=== PATIENT | female | born 1975 | race Caucasian/White ===

== ENCOUNTER → 2023-08-19 10:21 | Outpatient (REF) | payer OTHER, SELFPAY | LOC: RAD 10:21 | PROVIDERS: ATTENDING PHYSICIAN Family Medicine | DX: Z95.828 Presence of other vascular implants and grafts (principal) | CPT/HCPCS: 71046 ==

== ENCOUNTER → 2024-04-11 12:40 | Outpatient (REF) | payer OTHER, SELFPAY ==
[2024-04-11 12:55] VITALS: BP 137/94; BP_SYST 104
[2024-04-11 13:42] VITALS: BP 129/98; BP_SYST 69
[2024-04-11 13:55] VITALS: BP 129/98
== END ==
LOC: RADI 12:40
PROVIDERS: ATTENDING PHYSICIAN Internal Medicine Infectious Disease; FAMILY PHYSICIAN Internal Medicine
DX: B99.9 Unspecified infectious disease (principal)
CPT/HCPCS: 36573; C1751

== ENCOUNTER 2024-05-20 11:04 | Emergency (ER) | payer OTHER, SELFPAY ==
[2024-05-20 11:11] VITALS: BP 129/85
--- NOTE | 2024-05-20 12:11 | ED.GENMED ---
History of Present Illness
General
Chief Complaint: Vascular Access Problem
Time Seen by Provider: 05/20/24 11:47
History of Present Illness
History of Present Illness:
48-year-old female presents the emergency evaluation of left PICC line migration. She has had a PICC line for the past month IV ceftriaxone due to osteomyelitis. She noticed 1 cm of external migration last night but was still able to return blood
and infuse through the catheter. She arrives today requesting a chest x-ray for placement confirmation
Past History
Past History
ED Past Medical History: Other
ED Past Surgical History: Other (sinus surgery)
Social History
Tobacco: Non-smoker
Alcohol: None
Drug: None
Employment: Employed
Review of Systems
Review of Systems
Allergies reviewed?: Yes
All Other Systems: ROS reviewed and negative except as documented in HPI and ROS
Phy Exam
Physical Exam
Physical Exam:
GEN: Well appearing, NAD, WDWN
HEENT: Oral mucosa moist, no scleral icterus
Cardiac: Regular rate
Lung: No respiratory distress, no tachypnea
MSK: No gross deformity or injuries. PICC line in the left upper extremity, site is clean and dry with no erythema
Skin: Good color, no pallor or jaundice, no rashes
Neuro: AO x3, moves all extremities freely
Psych: Calm, cooperative
Course
Orders/Labs/Results
Orders:
Orders
05/20/24 11:17
Chest [CR Chest - 2 Views ] Urgent
Comment:
Reason For Exam: confirm picc placement
Vital Signs
Initial and Last Documented VS:
Initial Vital Signs
Temp Pulse Resp BP Pulse Ox
98.7 F 83 16 129/85 99
05/20/24 11:11 05/20/24 11:11 05/20/24 11:11 05/20/24 11:11 05/20/24 11:11
Last Documented Vital Signs
Temp Pulse Resp BP Pulse Ox
98.7 F 83 16 129/85 99
05/20/24 11:11 05/20/24 11:11 05/20/24 11:11 05/20/24 11:11 05/20/24 11:11
MDM/Problems Addressed
MDM/Problems Addressed:
PICC line in satisfactory positioning on chest x-ray
*Critical Care Note
Total Time (30-74mins, 75-104mins- exclusive of procedures): Not Applicable
ED Attending Note
-
Portions of this chart may have been created with voice recognition software.� Occasional wrong word or��sound alike� substitutions may have occurred due to the inherent limitations of voice recognition software.
Discharge Plan
Departure
Patient Disposition: Home (Routine Discharge)
Date of Disposition: 05/20/24
Time of Disposition: 12:13
Patient with high blood pressure during this ER visit?: No
Discharge Problem:
Status post PICC central line placement
Prescriptions:
No Action
ascorbic acid (vitamin C) [Vitamin C] 1,000 mg Tablet
1,000 mg PO DAILY
Probiotic 3 billion cell Capsule
1 cell PO DAILY
kzbrgodd-oxyj-hgydl-oreg-capry 100 mg-150 mg- 50 mg-150 mg Capsule
1 cap PO DAILY
Referrals:
Jacques Boston MD [Family Provider] -
Activity Restrictions/Additional Instructions:
Tip of the PICC line is seen in the SVC on chest x ray
Interventions
Interventions:
*Risk Screen - Suicide Last Done: 05/20/24 12:26
*General Assessment Last Done: 05/20/24 12:26
*Neglect/Abuse Screening Last Done: 05/20/24 12:26
ED- Fall Risk Assessment Last Done: 05/20/24 12:26
*ED COVID-19 Vaccine History Last Done: 05/20/24 12:26
*Nursing Disposition Last Done: 05/20/24 12:26
Discharge Date and Time
Discharge Date/Time: 05/20/24 12:27
Print Language: DIVEHI
== END 2024-05-20 12:27 | disposition home or self-care (01) ==
LOC: EMR 11:04
PROVIDERS: EMERGENCY PHYSICIAN Emergency Medicine; FAMILY PHYSICIAN Internal Medicine
DX: Z45.2 Encounter for adjustment and management of vascular access device (principal); M86.9 Osteomyelitis, unspecified; Z88.1 Allergy status to other antibiotic agents; Z91.048 Other nonmedicinal substance allergy status
CPT/HCPCS: 99283; 71046

== ENCOUNTER → 2024-06-03 10:22 | Outpatient (REF) | payer OTHER, SELFPAY | LOC: RAD 10:22 | PROVIDERS: ATTENDING PHYSICIAN Internal Medicine Infectious Disease; FAMILY PHYSICIAN Internal Medicine | DX: Z45.2 Encounter for adjustment and management of vascular access device (principal); M27.2 Inflammatory conditions of jaws | CPT/HCPCS: 71046 ==

== ENCOUNTER → 2024-06-08 12:42 | Outpatient (REF) | payer OTHER, SELFPAY ==
[2024-06-08 13:15] VITALS: BP 129/79; BP_SYST 83
== END ==
LOC: RADI 12:42
PROVIDERS: ATTENDING PHYSICIAN Internal Medicine Infectious Disease; FAMILY PHYSICIAN Internal Medicine
DX: T82.524A Displacement of infusion catheter, initial encounter (principal); Y82.8 Other medical devices associated with adverse incidents
CPT/HCPCS: 36584; C1751; C1769

== ENCOUNTER → 2025-03-12 13:19 | Outpatient (REF) | payer OTHER, SELFPAY | LOC: RCS 13:19 | PROVIDERS: ATTENDING PHYSICIAN Nurse Practitioner; FAMILY PHYSICIAN Family Medicine | DX: I49.3 Ventricular premature depolarization (principal) | CPT/HCPCS: 93306 ==

== ENCOUNTER 2025-04-15 19:18 | Emergency (ER) | payer OTHER, SELFPAY ==
[2025-04-15 19:20] VITALS: BP 157/101
[2025-04-15 19:40] LABS: Urine Character Clear (Clear)
--- NOTE | 2025-04-15 20:24 | ED.GENMED ---
History of Present Illness
General
Chief Complaint: Abdominal Pain
Source: patient
Exam Limitations: none
Time Seen by Provider: 04/15/25 19:36
Nursing documentation reviewed up to this point in time: agreed with
History of Present Illness
History of Present Illness:
Note:
CHIEF COMPLAINT(S)
Right-sided upper quadrant abdominal pain and persistent cough for one week.
HISTORY OF PRESENT ILLNESS
The patient is a 49-year-old female with a complex medical history of chronic mandibular osteomyelitis, migraines, chronic sinusitis presenting with right upper quadrant abdominal pain and a persistent cough for the past week. She reports the pain
is exacerbated by palpation and coughing, describing it as tender and painful upon touch and deep breaths. The cough is productive with some discharge and is accompanied by post-nasal drainage.
The patient recently underwent a computed tomography (CT) scan revealing moderate mucosal thickening and post-nasal thickening, with cultures by PCP positive for Pseudomonas aeruginosa. She has concerns about her current antibiotic regimen, as it
does not cover Pseudomonas infections. The medications mentioned include daptomycin and Unasyn, which the patient suspects may be contributing to her symptoms. She is concerned about effect of daptomycin on her liver. Two years ago, the patient
underwent surgery related to dental complications. She developed jaw osteomyelitis post-surgery, with persistent facial pain and swelling, described as a firm and painful lump. A recent attempt to resolve the osteomyelitis involved daptomycin
administered through a peripherally inserted central catheter (PICC) line. Her surgery site failed to heal properly, resulting in persistent infections, including Staphylococcus and fungal infections treated with fluconazole, causing concerns about
liver health given earlier abnormal liver enzyme levels.
The patient expresses significant distress about her current health status, mentioning persistent facial defects and recurrent infections, complicated by mismanagement post-surgery. Additionally, she is scheduled to see a her infectious disease
specialist for the Pseudomonas infection management. She denies shortness of breath. She denies pain in the lower chest. She denies dizziness or lightheadedness. She denies fevers or chills. She denies coughing up of blood or mucus.
PAST MEDICAL AND SURGICAL HISTORY
The patient had a history of suboptimal surgical interventions for dental issues, complicated by residual tooth segments leading to osteomyelitis. She had surgery two years ago to address these concerns but resulted in recurrent infections and
surgical mismanagement.
CHRONIC MEDICAL CONDITIONS SIGNIFICANTLY AFFECTING CARE
- Recurrent jaw osteomyelitis and persistent facial infections
- History of Staphylococcus and fungal infections
- Dental complications leading to jaw osteomyelitis
SOCIAL HISTORY
No history of smoking, alcohol, or recreational drug use was reported.
PHYSICAL EXAM
General: Patient is well appearing and in no acute distress; non-toxic
Skin: Warm and dry, no rashes or lesions
Head: Normocephalic, atraumatic
Eyes: Sclera non-icteric. EOMs intact.
Cardiac: Regular rate and rhythm, no murmurs
Peripheral Vascular: No lower extremity swelling or edema
Pulm: Normal respiratory effort, no wheezes, rales, rhonchi
Abdomen: Abdomen soft, normal bowel sounds noted, minimal tenderness noted in the right upper quadrant
Neuro: CN II-XII intact, no focal neurologic deficits.
Psychiatric: Appropriate mood and affect.
CHART REVIEW
Patient had recent trip to urgent care today right before ER visit and she had a chest x-ray which was normal.
She gave me her report from CT maxillofacial bones which was done on the which revealed postop changes seen in the bone with moderate mucosal thickening in the left maxillary sinuses with no evidence of fluid collection or abscess
PROBLEM LIST
Acute Problems:
- Persistent cough
- Right-sided upper quadrant abdominal pain
- Positive nasal for Pseudomonas aeruginosa
Chronic Problems:
- Jaw osteomyelitis
- Recurrent facial infections
PLAN
- Perform liver function tests to assess enzyme levels due to concerns about daptomycin use and potential side effects.
- Conduct an abdominal ultrasound to evaluate the liver and related structures, given prior gallbladder removal.
- Close outpatient follow-up with infectious disease
- Monitor and manage pain with suitable analgesics.
- Reassessment with an oral surgeon for possible surgical intervention and management of ongoing facial and bone defects as an outpatient
- CBC, CMP, D-dimer
DIFFERENTIAL DIAGNOSIS
The Differential Diagnosis includes, in no particular order and is not limited to:
1. Pseudomonas aeruginosa infection
2. Daptomycin-induced hepatitis
3. Chronic sinusitis with post-nasal drip
4. Unasyn side effects
5. Recurrent Staphylococcus infection
6. Liver dysfunction secondary to polypharmacy
7. Secondary bacterial infection
8. Fluconazole side effects
9. Osteomyelitis exacerbation
10. Stress-related gastrointestinal complications
UPDATE
Update, patient states that she is uncomfortable requesting pain medication
Patient given Toradol and on reevaluation, she is feeling improved. Patient is requesting ESR and CRP because she would like to compare it to the previous levels she had done and trended, she is also concerned about a cardiac etiology to her
symptoms and is requesting ECG and troponin both of which were unremarkable and normal
MDM/DISPOSITION
The patient is a 49-year-old female with a complex medical history of chronic mandibular osteomyelitis, migraines, chronic sinusitis presenting with right upper quadrant abdominal pain and a persistent cough for the past week. She reports the pain
is exacerbated by palpation and coughing, describing it as tender and painful upon touch and deep breaths. The coughing started first and the pain started later. Patient concerned about her liver because she is on daptomycin. On review of blood
work, her liver functions are normal and her abdominal ultrasound does not show any acute abnormalities of the liver. She had elevated D-dimer and went for CT scan of the chest which showed no PE but did show a right sided groundglass opacity which
may be concerning for atypical infection. I discussed findings with patient.
Patient did have a positive sputum culture for Pseudomonas a week ago. Ground glass opacities could represent a developing pneumonia. Considering patient's complex history regarding continuous IV antibiotics for chronic osteomyelitis as well as
multiple antibiotic allergies, will defer antibiotic treatment for possible lung infection to her infectious disease doctor who she is seeing later this morning. Patient is okay with this plan.
Patient has no white blood cell count, no fever, no indication for admission at this time. Stable for outpatient follow-up.
Past History
Past History
ED Past Medical History: Other
ED Past Surgical History: Other (sinus surgery)
Social History
Tobacco: Non-smoker
Alcohol: None
Drug: None
Employment: Employed
Phy Exam
Physical Exam
Physical Exam:
see hpi
Course
Orders/Labs/Results
Orders:
Orders
04/15/25 19:32
Urinalysis Reflex To Culture Urgent
Date Specimen was Collected: 04/15/25
Time Specimen was Collected: 19:27
04/15/25 20:23
Electrocardiogram (*1) Urgent
Reason for Study: Other
Other Reason for Exam: chest wall discomfort
EKG- Treatment ONCE
04/15/25 20:33
C-Reactive Protein Urgent
Comment: ADD ON
Complete Blood Count/With Diff Urgent
Comprehensive Metabolic Panel Urgent
Creatine Phosphokinase Urgent
Comment: ADD ON
Erythrocyte Sed Rate Urgent
Comment: ADD ON
04/15/25 20:43
COVID-19 Antigen Urgent
Source: Nasal Swab
Influenza A+B Rapid Molecular Urgent
DEWEY Source: Nasal Swab
Specimen Description:
04/15/25 21:32
US Abdomen Complete/Upper Urgent
Comment:
Reason For Exam: upper abdominal pain
04/15/25 22:01
Add On- LAB Urgent
Tests Added?: cpk
04/15/25 22:23
D-Dimer Urgent
04/15/25 22:52
Add On- LAB Urgent
Tests Added?: esr, crp
04/15/25 22:55
Troponin I Urgent
04/15/25 23:02
Ketorolac [Toradol] 15 mg IV NOW STA
04/16/25 00:00
CT Chest PE Study Urgent
Reason For Exam: chest pain, elevated d dimer
Abnormal Lab Results
04/15/25 04/15/25
20:33 22:23
MCH 31.4 H pg
(27.0-31.0)
ESR 33 H mm/hour
(0-20)
D-Dimer 1.01 H ug/mlFEU
(0.00-0.50)
Glucose 111 H mg/dl
(70-99)
04/15/25 20:33
04/15/25 20:33
Vital Signs
Initial and Last Documented VS:
Initial Vital Signs
Temp Pulse Resp BP Pulse Ox
98 F 100 20 157/101 100
04/15/25 19:20 04/15/25 19:20 04/15/25 19:20 04/15/25 19:20 04/15/25 19:20
Last Documented Vital Signs
Temp Pulse Resp BP Pulse Ox
98 F 77 20 133/88 97
04/15/25 19:20 04/15/25 23:15 04/15/25 23:15 04/15/25 23:15 04/15/25 23:15
*Pulse Oximetry
SaO2: 100
Oxygen Mode of Delivery: Room air
Patient hypoxic: no
*Critical Care Note
Total Time (30-74mins, 75-104mins- exclusive of procedures): Not Applicable
ED Attending Note
-
Portions of this chart may have been created with voice recognition software.� Occasional wrong word or��sound alike� substitutions may have occurred due to the inherent limitations of voice recognition software.
Discharge Plan
Departure
Patient Disposition: Home (Routine Discharge)
Date of Disposition: 04/16/25
Time of Disposition: 01:33
Patient with high blood pressure during this ER visit?: Yes
Condition: Good
Discharge Problem:
Right upper quadrant abdominal pain, Cough
Instructions: Cough in adults, Abdominal pain in adults - Discharge instructions, BLOOD PRESSURE
Prescriptions:
No Action
Probiotic 3 billion cell Capsule
1 cell PO DAILY
doxycycline hyclate 100 mg Capsule
100 mg PO DAILY
ceftriaxone 1 gram Piggyback
1 g IV USEASDIRECTD
Referrals:
Jacques Boston MD [Family Provider, Internal Medicine]
Activity Restrictions/Additional Instructions:
As discussed, your CAT scan shows a nonspecific ground glass opacity in the right lower lobe which may be due to an atypical infectious process. Regarding your chronic osteomyelitis of the jaw with concurrent sinusitis, and the antibiotics you are
currently taking, please consult your infectious disease doctor with your scheduled appointment later today. You may require additional antibiotic therapy.
PLEASE RETURN EMERGENCY DEPARTMENT SHOULD SHE DEVELOP INTRACTABLE NAUSEA OR VOMITING, ACUTE WORSENING OF HER SYMPTOMS, TROUBLE BREATHING, CHEST PAIN, DIZZINESS, LIGHTHEADEDNESS, LOSS OF CONSCIOUSNESS, FEVERS, OR ANY OTHER SIGNS OR SYMPTOMS WORRISOME
TO YOU.
Interventions
Interventions:
*Risk Screen - Suicide Last Done: 04/15/25 19:20
*General Assessment Last Done: 04/15/25 19:20
*Neglect/Abuse Screening Last Done: 04/15/25 19:20
*ED- Fall Risk Assessment Last Done: 04/15/25 19:20
*Nursing Disposition Last Done: 04/16/25 01:45
PH-Pywnqv-Gxxgpabltu Assessment Last Done: 04/15/25 21:00
Discharge Date and Time
Discharge Date/Time: 04/16/25 01:45
Print Language: MAURITANIAN
[2025-04-15 20:45] LABS: Hematocrit 38.9 % (37.0-47.0); Hemoglobin 13.4 g/dL (12.0-16.0); Mean Corp Hgb Conc. 34.4 g/dL (33.0-37.0); Mean Corpuscular Volume 91.1 fL (81.0-99.0); Nucleated Red Blood Cells % 0 %; Platelet Count 322 10^3/uL (130-400); Red Cell Dist. Width 12.9 % (11.5-14.5)
[2025-04-15 21:04] LABS: COVID-19 Antigen Negative (Negative)
[2025-04-15 21:09] LABS: ALT (SGPT) 30 U/L (0-35); AST (SGOT) 23 U/L (14-36); Albumin 4.1 g/dl (3.5-5.0); Alkaline Phosphatase 87 U/L (38-126); Blood Urea Nitrogen 15 mg/dl (7-17); Calcium 8.9 mg/dl (8.4-10.2); Carbon Dioxide 24 mmol/L (22-30); Chloride 106 mmol/L (98-107); Glucose 111 mg/dl (70-99); Potassium 4.4 mmol/L (3.5-5.1); Sodium 136 mmol/L (135-145); Total Protein 6.8 g/dl (6.3-8.2); eGFR > 60.00
[2025-04-15 22:55] LABS: D-Dimer 1.01 ug/mlFEU (0.00-0.50)
[2025-04-15] MEDS: TORADOL 15 MG IV (23:05)
[2025-04-15 23:15] VITALS: BP 133/88
[2025-04-15 23:29] LABS: Troponin I < 0.012 ng/ml
[2025-04-15 23:31] LABS: C-Reactive Protein 9.40 mg/L (0.0-10.00)
== END 2025-04-16 01:45 | disposition home or self-care (01) ==
LOC: EMR 19:18
PROVIDERS: Physician Assistant; EMERGENCY PHYSICIAN Emergency Medicine; FAMILY PHYSICIAN Internal Medicine; REFERRING PHYSICIAN Family Medicine
DX: R10.11 Right upper quadrant pain (principal); R05.9 Cough, unspecified; Z87.39 Personal history of other diseases of the musculoskeletal system and connective tissue; Z11.52 Encounter for screening for COVID-19
CPT/HCPCS: 99284; 96374; 71275; 76700; 80053; 81003; 82550; 84484; 85025; 85379; 85652; 86140; 87502; 87811; 93005; Q9967

== ENCOUNTER 2025-04-21 14:21 | Emergency (ER) | payer OTHER, SELFPAY ==
[2025-04-21 14:24] VITALS: BP 151/91
--- NOTE | 2025-04-21 15:36 | ED.GENMED ---
History of Present Illness
<Angelica Johnson PA-C - Last Filed: 04/23/25 03:17>
General
Chief Complaint: Abdominal Pain
Source: patient
Exam Limitations: none
Time Seen by Provider: 04/21/25 14:43
Nursing documentation reviewed up to this point in time: agreed with
History of Present Illness
History of Present Illness:
Patient is a 49-year-old female currently on IV antibiotics via PICC for osteomyelitis of the jaw who presents to the emergency department with concerns of persistent right upper quadrant pain. Patient seen in the ED 6 days ago for similar
complaints without any acute findings. Patient states pain in her right upper abdomen has remained constant and seems to radiate across the top of her abdomen. She also reports a vague discomfort in her left chest. She is concerned that this may
be related to her pancreas that she was recently on daptomycin via her PICC line.
Patient states this morning she felt nauseous and had an episode of vomiting. She denies any fever or chills. She denies any shortness of breath/difficulty breathing.
Patient currently undergoing treatment for osteomyelitis after jaw surgery in mid March. She is currently receiving IV vancomycin and IV cefepime via PICC line.
She reports past history of cholecystectomy
Past History
<Angelica Johnson PA-C - Last Filed: 04/23/25 03:17>
Past History
ED Past Medical History: Other
ED Past Surgical History: Other (sinus surgery)
Social History
Tobacco: Non-smoker
Alcohol: None
Drug: None
Employment: Employed
Review of Systems
<Angelica Johnson PA-C - Last Filed: 04/23/25 03:17>
Review of Systems
Allergies reviewed?: Yes
All Other Systems: ROS reviewed and negative except as documented in HPI and ROS
Phy Exam
<Angelica Johnson PA-C - Last Filed: 04/23/25 03:17>
Physical Exam
Physical Exam:
Vitals: Hypertensive, otherwise vital signs stable. Afebrile
General: Patient is well appearing, no acute distress. Nontoxic appearing
Skin: Warm and dry, no rashes or lesions
Head: Normocephalic, atraumatic
Eyes: Sclera nonicteric.
Throat: Protecting airway
Neck: Normal ROM, no cervical spine tenderness, no meningismus
Cardiac: Regular rate and rhythm, no murmurs.
Pulm: Normal respiratory effort, no wheezes, rales, rhonchi heard on exam
Abdomen: Abdomen soft. Mild reproducible tenderness in right upper quadrant/right lower chest. No rebound tenderness or guarding. No epigastric tenderness. No ecchymoses or rash
Extremities: PICC in left upper extremity. No evidence of cyanosis or edema
Neuro: AAOx3. Grossly intact.
Psychiatric: Normal affect.
Course
<Angelica Johnson PA-C - Last Filed: 04/23/25 03:17>
Orders/Labs/Results
Orders:
Orders
04/21/25 15:38
Electrocardiogram (*1) Urgent
Reason for Study: Chest Pain
EKG- Treatment ONCE
Ketorolac [Toradol] 15 mg IV NOW STA
04/21/25 15:46
Complete Blood Count/With Diff Urgent
Comprehensive Metabolic Panel Urgent
Lipase Urgent
04/21/25 15:59
Heparin Pf [Heparin Lock Flush] 1,000 unit .ROUTE .STK-MED ONE
04/21/25 16:00
Heparin Pf [Heparin Lock Flush] 500 unit IV PER PROTOCOL
04/21/25 16:48
Albuterol [ProAIR HFA INHALER] 2 puff INH R NOW STA
04/21/25 16:51
Albuterol [ProAIR HFA INHALER] 2 puff INH R NOW STA
Abnormal Lab Results
04/21/25
15:46
RBC 4.18 L 10^6/uL
(4.20-5.40)
MCH 31.6 H pg
(27.0-31.0)
Lymphocytes % 15.7 L %
(20.5-51.1)
Eosinophils % 8.5 H %
(0-6)
Chloride 108 H mmol/L
(98-107)
04/21/25 15:46
04/21/25 15:46
Vital Signs
Initial and Last Documented VS:
Initial Vital Signs
Temp Pulse Resp BP Pulse Ox
98.6 F 89 16 151/91 98
04/21/25 14:24 04/21/25 14:24 04/21/25 14:24 04/21/25 14:24 04/21/25 14:24
Last Documented Vital Signs
Temp Pulse Resp BP Pulse Ox
98.6 F 82 18 133/90 97
04/21/25 14:24 04/21/25 17:00 04/21/25 17:00 04/21/25 17:00 04/21/25 17:00
Anamikalt;Sabas Guzman, DO - Last Filed: 04/21/25 16:51>
Orders/Labs/Results
Orders:
Orders
04/21/25 15:38
Electrocardiogram (*1) Urgent
Reason for Study: Chest Pain
EKG- Treatment ONCE
Ketorolac [Toradol] 15 mg IV NOW STA
04/21/25 15:46
Complete Blood Count/With Diff Urgent
Comprehensive Metabolic Panel Urgent
Lipase Urgent
04/21/25 15:59
Heparin Pf [Heparin Lock Flush] 1,000 unit .ROUTE .STK-MED ONE
04/21/25 16:00
Heparin Pf [Heparin Lock Flush] 500 unit IV PER PROTOCOL
04/21/25 16:48
Albuterol [ProAIR HFA INHALER] 2 puff INH R NOW STA
04/21/25 16:51
Albuterol [ProAIR HFA INHALER] 2 puff INH R NOW STA
Abnormal Lab Results
04/21/25
15:46
RBC 4.18 L 10^6/uL
(4.20-5.40)
MCH 31.6 H pg
(27.0-31.0)
Lymphocytes % 15.7 L %
(20.5-51.1)
Eosinophils % 8.5 H %
(0-6)
Chloride 108 H mmol/L
(98-107)
04/21/25 15:46
04/21/25 15:46
Vital Signs
Initial and Last Documented VS:
Initial Vital Signs
Temp Pulse Resp BP Pulse Ox
98.6 F 89 16 151/91 98
04/21/25 14:24 04/21/25 14:24 04/21/25 14:24 04/21/25 14:24 04/21/25 14:24
Last Documented Vital Signs
Temp Pulse Resp BP Pulse Ox
98.6 F 82 18 133/90 97
04/21/25 14:24 04/21/25 17:00 04/21/25 17:00 04/21/25 17:00 04/21/25 17:00
<Angelica Johnson PA-C - Last Filed: 04/23/25 03:17>
MDM/Problems Addressed
Differential Diagnosis Includes:
Not limited to: Muscle strain/spasm, costochondritis, pleurisy, pneumonia, pancreatitis, etc.
MDM/Problems Addressed:
49-year-old female currently undergoing IV antibiotics via PICC line for osteomyelitis of jaw with persistent right upper quadrant pain. She did have 1 episode of nausea and vomiting this morning. No fevers. No shortness of breath. Exam as
above. Patient well-appearing, in no apparent distress. Abdomen soft without any rebound tenderness or guarding. No epigastric tenderness and negative Silveira sign. Cardio/pulmonary assessment unremarkable.
Patient had very extensive workup in emergency department approximately 6 days ago for similar symptoms, including normal abdominal ultrasound and negative CTA chest. Patient concerned about her pancreas. Low suspicion for acute infectious
process. Will check labs, lipase, EKG and treat with Toradol.
Update: Labs without any clinically significant abnormalities. Lipase normal. EKG shows normal sinus rhythm without acute ischemic changes. Ultimately�do not suspect acute intra-abdominal infection. There was a possible groundglass opacity
versus atelectasis noted on CTA chest about a week ago however�patient is already receiving IV vancomycin and cefepime which should cover for a possible pneumonia. Do suspect underlying GERD. Will discharge patient home with PPI and incentive
spirometer given findings of atelectasis. Patient seen with attending physician. Return precautions discussed.
Chronic conditions affecting care:
Osteomyelitis of jaw currently receiving IV vancomycin/cefepime via PICC
Acute Exacerbation and/or Progression of Chronic Illness:
N/A
<Angelica Johnson PA-C - Last Filed: 04/23/25 03:17>
*Pulse Oximetry
SaO2: 98
Oxygen Mode of Delivery: Room air
Patient hypoxic: no
*EKG
Interpreted by ED Provider?: Yes
EKG Intrepretation Date: 04/21/25
Interpretation: normal
Comparison EKG: no changes
Heart Rate: 78
Rate: normal
Rhythm: sinus
[place]: normal axis
Interval: normal QT interval
QRS Pattern: normal QRS
Ischemia: no ischemia
*Manufacturing Laborer Interpretation
Rate: Manufacturing Laborer- N/A
*Critical Care Note
Total Time (30-74mins, 75-104mins- exclusive of procedures): Not Applicable
Data Reviewed
Review of Other/Old Records Reveals: Radiology Studies (Chest CT from 04/16/2025 which shows no evidence of PE however bilateral groundglass opacities in lower lobes; abdominal ultrasound from 04/15/2025 without acute findings)
ED Attending Note
<Angelica Johnson PA-C - Last Filed: 04/23/25 03:17>
-
Portions of this chart may have been created with voice recognition software.� Occasional wrong word or��sound alike� substitutions may have occurred due to the inherent limitations of voice recognition software.
<Sabas Guzman DO - Last Filed: 04/21/25 16:51>
ED Attending Note
Patient seen and examined by attending physician: Yes
I performed the substantive portion of visit, reviewed & personally made and approve the management plan that is documented in note by myself or RENETTA.: Yes
I performed a history and physical exam of patient and discussed management with resident, I reviewed resident's note and agree with documented findings and plan of care.: Yes
ED Attending Note:
49-year-old female presents to the ER for evaluation of right upper quadrant abdominal pain along with nausea over the past 2 weeks. Patient is on long-term antibiotics for treatment of a poorly healing dental infection. She recently was changed
to cefepime and Vanco through PICC line due to presence of Pseudomonas in her most recent culture. Patient states she has had generally a poor appetite. She cannot correlate her symptoms necessarily with p.o. intake. She reports pain with deep
breathing. She had been seen in this emergency department 5 days ago for the same symptoms and underwent CT of the chest to rule out pulmonary embolism. Patient has been not feeling any better and had read her CT reports concerning for groundglass
opacities prompting her to come back to the ER for another opinion. No fevers. Vital signs reviewed, patient is awake, alert, loquacious, appears in no acute distress, sclera anicteric, mucous membranes moist, heart regular rate and rhythm not
murmurs or ectopy, lungs are clear to auscultation without wheezes rales or rhonchi, cough is provoked with deep inspiration, GCS is 15. I discussed with patient very reassuring workup in the emergency department today-white blood count normal,
lipase negative. I reviewed CT results from last week, nonspecific findings. She is not hypoxic. She is not tachycardic. I discussed with her trial of albuterol inhaler to see if this helps alleviate her symptoms. I also discussed with patient
benefit of encouraged deep breathing in order to prevent worsening of atelectasis. She is already on very thorough antibiotic coverage if this were to reflect pneumonia. I also discussed with patient addition of antiacid medication as she has in
the past experience GERD and I wonder if this is also affecting her discomforts. Patient feels comfortable with this plan for discharge home. She has no questions at the current time.
Discharge Plan
Departure
Patient Disposition: Home (Routine Discharge)
Date of Disposition: 04/21/25
Time of Disposition: 16:52
Patient with high blood pressure during this ER visit?: Yes
Discharge Problem:
Abdominal pain, RUQ
Instructions: Acid Reflux, Adult and Adolescent ED
Prescriptions:
No Action
Probiotic 3 billion cell Capsule
1 cell PO DAILY
doxycycline hyclate 100 mg Capsule
100 mg PO DAILY
ceftriaxone 1 gram Piggyback
1 g IV USEASDIRECTD
Referrals:
Chris Soto MD [Family Provider]
Activity Restrictions/Additional Instructions:
Please use Pepcid as available [id number] daily until you are seen in follow-up with your primary care physician. Continue using antibiotics as prescribed. Please try to take at least 10 deep breaths every hour to help with discomforts. Use
albuterol inhaler as given in the emergency department 4 times daily until seen in follow up
Interventions
Interventions:
*Risk Screen - Suicide Last Done: 04/21/25 14:24
*General Assessment Last Done: 04/21/25 15:38
*Neglect/Abuse Screening Last Done: 04/21/25 14:24
*ED- Fall Risk Assessment Last Done: 04/21/25 15:38
*Nursing Disposition Last Done: 04/21/25 17:30
FJ-Kzuzam-Cytybscqly Assessment Last Done: 04/21/25 15:38
Discharge Date and Time
Discharge Date/Time: 04/21/25 17:30
Print Language: [place]
[2025-04-21] MEDS: TORADOL 15 MG IV (16:02)
[2025-04-21 16:08] LABS: Hematocrit 38.2 % (37.0-47.0); Hemoglobin 13.2 g/dL (12.0-16.0); Mean Corp Hgb Conc. 34.6 g/dL (33.0-37.0); Mean Corpuscular Volume 91.4 fL (81.0-99.0); Nucleated Red Blood Cells % 0 %; Platelet Count 295 10^3/uL (130-400); Red Cell Dist. Width 12.9 % (11.5-14.5)
[2025-04-21 16:23] LABS: ALT (SGPT) 35 U/L (0-35); AST (SGOT) 25 U/L (14-36); Albumin 4.1 g/dl (3.5-5.0); Alkaline Phosphatase 90 U/L (38-126); Blood Urea Nitrogen 8 mg/dl (7-17); Calcium 9.2 mg/dl (8.4-10.2); Carbon Dioxide 25 mmol/L (22-30); Chloride 108 mmol/L (98-107); Glucose 97 mg/dl (70-99); Lipase 129 U/L (23-300); Potassium 4.0 mmol/L (3.5-5.1); Sodium 137 mmol/L (135-145); Total Protein 6.8 g/dl (6.3-8.2); eGFR > 60.00
[2025-04-21 17:00] VITALS: BP 133/90
== END 2025-04-21 17:30 | disposition home or self-care (01) ==
LOC: EMR 14:21
PROVIDERS: Physician Assistant; EMERGENCY PHYSICIAN Emergency Medicine; FAMILY PHYSICIAN Family Medicine
DX: R10.11 Right upper quadrant pain (principal); M27.2 Inflammatory conditions of jaws; J98.11 Atelectasis; Z90.49 Acquired absence of other specified parts of digestive tract; Z79.2 Long term (current) use of antibiotics
CPT/HCPCS: 94640; 96374; 99284; 80053; 83690; 85025; 93005

== ENCOUNTER 2025-05-06 14:50 | Emergency (ER) | payer OTHER, SELFPAY ==
[2025-05-06 14:54] VITALS: BP 139/90
--- NOTE | 2025-05-06 16:22 | ED.GENMED ---
History of Present Illness
General
Chief Complaint: Abdominal Symptoms
Source: patient
Exam Limitations: none
Time Seen by Provider: 05/06/25 15:29
Nursing documentation reviewed up to this point in time: agreed with
History of Present Illness
History of Present Illness:
The patient is a 49-year-old female with a past medical history of chronic osteomyelitis of her left jaw, for which she has been on IV vancomycin and cefepime through her PICC line for treatment, comes in with complaints of fairly sudden onset of
left upper abdominal pain that started yesterday at around 8 PM after she ate a large meal. Patient reports that initially was sharp, severe and stabbing. Patient reports that since then it has doubled out. The pain radiates towards her chest.
She denies shortness of breath and fever. She denies calf pain. Patient denies nausea, vomiting and diarrhea. Patient was recently evaluated in the emergency department about 2 weeks ago with right upper abdominal pain and had an ultrasound of
her abdomen that showed no acute disease. Additionally, patient had a recent CT chest done with IV contrast which showed no PE but did show ground glass opacities. Patient reports she is extremely concerned that something could be wrong with her
pancreas. Additionally, patient is worried that perhaps the fungal infection in her mouth could have spread to her left lower lung, causing her to have pain.
Past History
Past History
ED Past Medical History: GERD and Other (Chronic osteomyelitis of jaw)
ED Past Surgical History: Cholecystectomy and Other (sinus surgery, multiple dental surgeries)
Social History
Tobacco: Former smoker
Alcohol: None
Drug: None
Personal: Other
Living: other
Employment: Employed
Family History
Family History: Other
Review of Systems
Review of Systems
Allergies reviewed?: Yes
All Other Systems: ROS reviewed and negative except as documented in HPI and ROS
Constitutional: Reports no symptoms
EENT: Reports other
Respiratory: Reports no symptoms
Cardiac: Reports chest pain
ABD/GI: Reports abdominal pain
: Reports no symptoms
Musculoskeletal: Reports no symptoms
Skin: Reports no symptoms
Neurological: Reports no symptoms
Endocrine: Reports no symptoms
Hematologic/Lymphatic: Reports no symptoms
Psychiatric: Reports no symptoms
Phy Exam
Physical Exam
Physical Exam:
Physical Exam
General: no apparent distress, not acutely ill. Well uncomfortable appearing
Neck: supple. no meningeal signs. normal psoterior pharynx
Heart: s1/s2 regular rate and rhythm, no murmur. equal radial pulses.
Lungs: no acute respiratory distress. clear bilaterally
Abdomen: Soft, nondistended, no pulsatile mass, epigastric tenderness without rebound or guarding.
Neuro: alert and oriented. no focal neurological deficits
Skin: no rash
Psychiatric: well kept. interactive and cooperative
Extremities: no edema. no calf tenderness. negative homans. good distal pulses
Course
Orders/Labs/Results
Orders:
Orders
05/06/25 14:57
EKG [Electrocardiogram (*1)] Urgent
Reason for Study: Abdominal Pain
EKG- Treatment ONCE
05/06/25 16:09
Sucralfate Suspension [Carafate Suspension] 1 gm PO NOW STA
05/06/25 16:43
CXR2 [CR Chest - 2 Views ] Urgent
Comment:
Reason For Exam: PICC line confirmation
05/06/25 18:32
Amylase Urgent
Complete Blood Count/With Diff Urgent
Comprehensive Metabolic Panel Urgent
Lipase Urgent
Troponin I Urgent
05/06/25 18:47
Ketorolac [Toradol] 30 mg IV NOW STA
Abnormal Lab Results
05/06/25
18:32
MCH 31.3 H pg
(27.0-31.0)
Lymphocytes % 17.5 L %
(20.5-51.1)
Eosinophils % 6.8 H %
(0-6)
ALT 36 H U/L
(0-35)
05/06/25 18:32
05/06/25 18:32
Vital Signs
Initial and Last Documented VS:
Initial Vital Signs
Temp Pulse Resp BP Pulse Ox
98.4 F 76 17 139/90 99
05/06/25 14:54 05/06/25 14:54 05/06/25 14:54 05/06/25 14:54 05/06/25 14:54
Last Documented Vital Signs
Temp Pulse Resp BP Pulse Ox
98.4 F 70 18 130/78 98
05/06/25 14:54 05/06/25 18:00 05/06/25 18:00 05/06/25 18:00 05/06/25 18:00
MDM/Problems Addressed
Differential Diagnosis Includes:
Acute gastritis, acute pancreatitis, acute coronary syndrome
MDM/Problems Addressed:
Patient presents with acute epigastric pain rating into chest
Chronic conditions affecting care: Other (GERD)
Acute Exacerbation and/or Progression of Chronic Illness:
Patient may have acute exacerbation of GERD given that pain started soon after eating a large meal yesterday
*Radiology
Radiology exam reviewed: preliminary read by ED provider (Chest x-ray appears normal. PICC line in place. Chest x-ray read by me) and radiology read reviewed
*Pulse Oximetry
SaO2: 99
Oxygen Mode of Delivery: Room air
Patient hypoxic: no
*EKG
Interpreted by ED Provider?: Yes
Interpretation: normal
Comparison EKG: no changes
Rate: normal
Rhythm: sinus
Interval: normal interval
QRS Pattern: normal QRS
Ischemia: no ischemia
*Production Line Mechanic Interpretation
Rate: normal
Interpretation: normal
Rhythm: sinus
*Critical Care Note
Total Time (30-74mins, 75-104mins- exclusive of procedures): Not Applicable
Data Reviewed
Review of Other/Old Records Reveals: Radiology Studies (CT chest done 04/16/2025 shows no PE)
Source: patient
Patient Management
Social determinants of health affecting care: Living situation and Strong social support
Escalation/DeEscalation of care consider admission/obs:
Patient remains extremely well and comfortable appearing. She has no fever, nausea or vomiting in the ED. Her pain has lessened substantially with Carafate and Toradol.
Her labs are normal. Patient has no lower abdominal pain to suggest acute diverticulitis or acute appendicitis. Her abdomen is completely soft and nondistended so it is doubtful she has a bowel obstruction. Given the patient's pain is epigastric,
it is very likely that she has some form of GERD or gastritis.
Patient's troponin is normal and EKG is nonischemic, therefore it is doubtful she is acute coronary syndrome.
ED Attending Note
-
Portions of this chart may have been created with voice recognition software.� Occasional wrong word or��sound alike� substitutions may have occurred due to the inherent limitations of voice recognition software.
Discharge Plan
Departure
Patient Disposition: Home (Routine Discharge)
Date of Disposition: 05/06/25
Time of Disposition: 19:59
Patient with high blood pressure during this ER visit?: Yes
Condition: Good
Covid-19: Not Applicable
Discharge Problem:
Acute epigastric pain
Instructions: [place] Diet, Abdominal pain in adults - ED (DC), BLOOD PRESSURE
Prescriptions:
New
pantoprazole [Protonix] 40 mg tablet,delayed release (DR/EC)
40 mg PO DAILY Qty: 14 0RF
ketorolac 10 mg tablet
10 mg PO TID PRN (Reason: pain) Qty: 7 0RF
No Action
Probiotic 3 billion cell Capsule
1 cell PO DAILY
doxycycline hyclate 100 mg Capsule
100 mg PO DAILY
ceftriaxone 1 gram Piggyback
1 g IV USEASDIRECTD
Referrals:
Chris Soto MD [Family Provider]
Activity Restrictions/Additional Instructions:
Take Protonix once a day in the morning for 14 days straight. After that, as long as your abdominal pain improves, you do not have to continue to take it.
[place] the Toradol only for severe pain, as the Toradol can further upset your stomach. Do not combine Toradol with any other NSAID such as Motrin, ibuprofen, Advil, or Aleve within 8 hours.
Interventions
Interventions:
*Risk Screen - Suicide Last Done: 05/06/25 14:56
*General Assessment Last Done: 05/06/25 14:56
*Neglect/Abuse Screening Last Done: 05/06/25 14:56
*ED- Fall Risk Assessment Last Done: 05/06/25 16:33
*ED COVID-19 Vaccine History Last Done: 05/06/25 14:56
*Nursing Disposition Last Done: 05/06/25 20:55
XA-Ggmvnl-Jvwwczvxtc Assessment Last Done: 05/06/25 17:20
Discharge Date and Time
Discharge Date/Time: 05/06/25 20:56
Print Language: [id number]
[2025-05-06] MEDS: CARAFATE SUSPENSION 1 GM PO (16:30)
[2025-05-06 16:33] VITALS: BMI 32.0
[2025-05-06 18:00] VITALS: BP 130/78
[2025-05-06 18:41] LABS: Hematocrit 41.4 % (37.0-47.0); Hemoglobin 14.2 g/dL (12.0-16.0); Mean Corp Hgb Conc. 34.3 g/dL (33.0-37.0); Mean Corpuscular Volume 91.4 fL (81.0-99.0); Nucleated Red Blood Cells % 0 %; Platelet Count 287 10^3/uL (130-400); Red Cell Dist. Width 13.0 % (11.5-14.5)
[2025-05-06] MEDS: TORADOL 30 MG IV (19:01)
[2025-05-06 19:05] LABS: Troponin I < 0.012 ng/ml
[2025-05-06 19:11] LABS: ALT (SGPT) 36 U/L (0-35); AST (SGOT) 26 U/L (14-36); Albumin 4.2 g/dl (3.5-5.0); Alkaline Phosphatase 106 U/L (38-126); Amylase 67 U/L (30-110); Blood Urea Nitrogen 13 mg/dl (7-17); Calcium 9.6 mg/dl (8.4-10.2); Carbon Dioxide 26 mmol/L (22-30); Chloride 106 mmol/L (98-107); Estimated Creatinine Clearance 119 ml/min; Glucose 95 mg/dl (70-99); Lipase 114 U/L (23-300); Potassium 3.8 mmol/L (3.5-5.1); Sodium 139 mmol/L (135-145); Total Protein 7.1 g/dl (6.3-8.2); eGFR > 60.00
== END 2025-05-06 20:56 | disposition home or self-care (01) ==
LOC: EMR 14:50
PROVIDERS: EMERGENCY PHYSICIAN Emergency Medicine; FAMILY PHYSICIAN Family Medicine
DX: R10.13 Epigastric pain (principal); M27.2 Inflammatory conditions of jaws; K21.9 Gastro-esophageal reflux disease without esophagitis; Z87.891 Personal history of nicotine dependence
CPT/HCPCS: 99284; 96374; 71046; 80053; 82150; 83690; 84484; 85025; 93005

== ENCOUNTER → 2025-05-16 13:41 | Outpatient (REF) | payer OTHER, SELFPAY | LOC: HWRCS 13:41 | PROVIDERS: ATTENDING PHYSICIAN Internal Medicine; FAMILY PHYSICIAN Family Medicine | DX: I49.3 Ventricular premature depolarization (principal) | CPT/HCPCS: 93306 ==